=== PATIENT | female | born 1975 | race Hispanic/Latino ===

== ENCOUNTER 2016-12-18 08:01 | Emergency (ER) | payer SELFPAY ==
[2016-12-18 09:18] LABS: Basophils % (Auto) 0.6 % (0.0-1.8); Eosinophils % (Auto) 1.3 % (0.0-4.3); Hematocrit 33.2 % (30.3-42.9); Hemoglobin 10.9 gm/dl (10.1-14.3); Mean Corpuscular HGB Conc 33 % (30-34); Mean Corpuscular Hemoglobin 29 pg (28-32); Mean Corpuscular Volume 90 fl (79-97); Platelet Count 425 K/mm3 (140-440); Red Cell Distribution Width 14.1 % (13.2-15.2); White Blood Count 12.8 K/mm3 (4.5-11.0)
[2016-12-18 09:43] LABS: Alanine Aminotransferase 208 units/L (7-56); Albumin 3.8 g/dL (3.9-5); Albumin/Globulin Ratio 1.2 %; Alkaline Phosphatase 109 units/L (35-129); Anion Gap 17 mmol/L; BUN/Creatinine Ratio 8.33; Bilirubin,Total 0.3 mg/dL (0.1-1.2); Blood Urea Nitrogen 5 mg/dL (7-17); Calcium 8.7 mg/dL (8.4-10.2); Carbon Dioxide 25 mmol/L (22-30); Chloride 101.4 mmol/L (98-107); Glucose 89 mg/dL (65-100); INR 0.94 (0.87-1.13); Lipase 19 units/L (13-60); Potassium 3.8 mmol/L (3.6-5.0); Sodium 140 mmol/L (137-145)
[2016-12-18 09:55] LABS: Bacteria,Urine 1+ /HPF (Negative); Bilirubin,Urine NEG (Negative); Blood,Urine MOD (Negative); Ketones,Urine NEG (Negative); Leukocyte Esterase,Urine NEG (Negative); Mucus,Urine 3+ /HPF; Nitrite,Urine POS (Negative); Protein,Urine <15 mg/dL mg/dL (Negative)
--- NOTE | 2016-12-18 11:31 | XRay Report ---
AP CHEST :12/18/16 08:01:00 CLINICAL: Sepsis. COMPARISON:None. FINDINGS: Normal heart and pulmonary vasculature. The lungs are normally expanded and clear except for mild left lower lobe subsegmental atelectasis. The bones and soft tissues are normal. IMPRESSION: Mild left lower lobe subsegmental atelectasis. No pneumonia.
[2016-12-18] MEDS ORDERED: NACL 0.9% 1000 ML 1,000 ML IV ONE (19:51)
[2016-12-18] MEDS ORDERED: SUBLIMAZE IV ONE (19:51)
[2016-12-18] MEDS ORDERED: NACL ONE (19:51)
--- NOTE | 2016-12-18 20:15 | Emergency Department Report ---
HPI - General Chief Complaint: Abdominal Pain Time Seen by Provider: 12/18/16 18:48 - HPI HPI: This is a 41-year-old female presents to the emergency department with a one-week history of lower abdominal pain. The patient was recently at [facility] and admitted for 2 days for a urinary tract infection and sepsis , allegedly. The patient says that she left [facility] last night without being discharged, AMA, after she got into an argument with one of the nurses. She then went home but the pain continued or worsened so she came here for further evaluation. She gets to a history of arthritis. She has not taken anything for symptoms prior to presentation. She does not have a primary care doctor. She is not taken anything for symptoms since being home. She denies any nausea, vomiting, vaginal bleeding or discharge but does admit to some occasional dysuria. ED Past Medical Hx - Past Medical History Hx Diabetes: Yes (states "I only have it when I gain weight" takes NO meds) Hx Renal Disease: Yes Hx Arthritis: Yes (states she is in remission) Additional medical history: Low BP, - Surgical History Past Surgical History?: Yes Additional Surgical History: C- Section x3 - Social History Smoking Status: Current Every Day Smoker - Medications Home Medications: Home Medications Medication Instructions Recorded Confirmed Last Taken Type HYDROcodone/APAP 5-325 [Holmes 1 each PO Q6HR PRN #14 tablet 12/18/16 Unknown Rx 5/325] ED Review of Systems ROS: Stated complaint: UTI/PAIN Other details as noted in HPI Comment: All other systems reviewed and negative Constitutional: denies: chills, fever Eyes: denies: eye pain, eye discharge, vision change ENT: denies: ear pain, throat pain Respiratory: denies: cough, shortness of breath, wheezing Cardiovascular: denies: chest pain, palpitations Gastrointestinal: abdominal pain. denies: nausea Genitourinary: dysuria. denies: discharge Musculoskeletal: back pain. denies: arthralgia Skin: denies: rash, lesions Neurological: denies: headache, weakness, paresthesias Physical Exam - Physical Exam Vital Signs: Vital Signs 12/18/16 12/18/16 08:09 18:56 Temperature 98.1 F Pulse Rate 118 H 101 H Respiratory 20 20 Rate Blood Pressure 116/80 Blood Pressure 130/85 [Right] O2 Sat by Pulse 95 98 Oximetry Physical Exam: GENERAL: The patient is well-developed well-nourished. HEENT: Normocephalic. Atraumatic. Extraocular motions are intact. Patient has moist mucous membranes. Pupils equal reactive to light bilaterally. NECK: Supple. Trachea is midline. CHEST/LUNGS: Clear to auscultation. There is no respiratory distress noted. HEART/CARDIOVASCULAR: Regular. There is no tachycardia. There is no gallop rub or murmur. ABDOMEN: Abdomen is soft. There is mild tenderness to palpation to the lower quadrants of the abdomen. No guarding or rebound tenderness. Patient has normal bowel sounds. There is no abdominal distention. SKIN: Warm and dry. NEURO: The patient is awake, alert, and oriented. The patient is cooperative. The patient has no focal neurologic deficits. The patient has normal speech. MUSCULOSKELETAL: There is no tenderness or deformity. There is no limitation range of motion. There is no evidence of acute injury. ED Course Vital Signs 12/18/16 12/18/16 08:09 18:56 Temperature 98.1 F Pulse Rate 118 H 101 H Respiratory 20 20 Rate Blood Pressure 116/80 Blood Pressure 130/85 [Right] O2 Sat by Pulse 95 98 Oximetry ED Medical Decision Making - Lab Data Result diagrams: 12/18/16 08:31 12/18/16 08:31 - Radiology Data Radiology results: report reviewed, image reviewed interpreted by me: Chest x-ray did not show any acute process. Heart is normal shape and size. No effusions. No pneumothorax. No signs of pneumonia seen. Right upper quadrant ultrasound shows a prominent gallbladder wall thickening which may relate to its contracted state. No shadowing gallstones or biliary dilatation. CT of the abdomen and pelvis with IV contrast shows prominent wall thickening/ edema of the gallbladder. No calcified gallstones or gross biliary dilatation. Trace left and right small pleural effusion. Trace fluid in the pelvis which may be reactive or physiologic. Enlarged upper abdominal lymph nodes borderline enlarged retroperitoneal lymph nodes which may be reactive. Neoplastic lymphadenopathy is less likely but not be entirely excluded. Follow- up CT within next few months suggested. No other acute findings within the abdomen and pelvis. - Medical Decision Making This is a 41-year-old female presents to the emergency department with continued discomfort in the lower abdomen that previously had her at [facility] for a urinary tract infection and allegedly a septic state. Patient has stable vital signs at her ED course including being afebrile. She had some mild tachycardia when she first got here but it has resolved with some IV fluid resuscitation and pain control. Patient's labs show a mild leukocytosis of 12, 000. Patient has a elevation of her AST of 78 and ALT of 200. There is an elevated BNP level of 5000 but she does not have coarse breath sounds on auscultation, there are no pleural effusions seen on chest x-ray. Patient is not complaining of any chest pain or shortness of breath. Due to the patient's level of abdominal discomfort, a CT of the abdomen and pelvis with IV contrast was done. There is some adenopathy seen in the abdomen and there is some thickening of the gallbladder wall but no biliary dilatation or stones. A right upper quadrant ultrasound was also done that once again show some prominence of the gallbladder, most likely due to its contracted state, but no biliary dilatation or stones. Patient was given a dose of pain medication and upon reevaluation is feeling better. She'll be discharged home to follow-up with primary care and gastroenterology. She'll return to the ER with any worsening of her symptoms or any acute distress. - Differential Diagnosis UTI, pyelonephritis, , fibroids, colitis Critical Care Time: No Critical care attestation.: If time is entered above; I have spent that time in minutes in the direct care of this critically ill patient, excluding procedure time. ED Disposition Clinical Impression: Abdominal lymphadenopathy, Transaminitis Abdominal pain Qualifiers: Abdominal location: lower abdomen, unspecified Qualified Code(s): R10.30 - Lower abdominal pain, unspecified Disposition: DISCHARGED TO HOME OR SELFCARE Is pt being admited?: No Condition: Stable Instructions: Abdominal Pain (ED) Additional Instructions: Please follow-up with the primary care clinic I have given you a referral for. I have also given a referral for a local melt supervisor to follow up regarding your elevated liver enzymes and your abdominal pains. Return to the emergency department with any worsening of your symptoms or any acute distress. You've been prescribed a medication that is sedating. Therefore this medication cannot be mixed with alcohol, or taken prior to driving, working, or being responsible for children. Prescriptions: HYDROcodone/APAP 5-325 [Holmes 5/325] 1 each PO Q6HR PRN #14 tablet PRN Reason: Pain Referrals: PRIMARY CARE, [Primary Care Provider] - 3-5 Days ANASTASIA MCCALL MD [Staff Physician] - 3-5 Days [facility] [Outside] - 3-5 Days Time of Disposition: 23:52
--- NOTE | 2016-12-18 22:40 | Cat Scan Report ---
FINAL REPORT EXAM: CT ABDOMEN PELVIS W CON HISTORY: Abd pain COMPARISON: None available. TECHNIQUE: Contiguous axial images were obtained. Additional sagittal and coronal reformatted images were obtained. Administration of IV contrast given per institution protocol. Images submitted for interpretation. 100 cc Omnipaque [id number]. FINDINGS: Trace left and small right-sided pleural effusions. Nonspecific linear consolidation right lower lobe which may reflect compressive atelectasis. Mild septal thickening at the lung bases concerning for mild edema. Tiny hiatal hernia. 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 No other focal hepatic lesion. Spleen and pancreas are grossly unremarkable. No adrenal mass. No cholelithiasis. Prominent gallbladder wall thickening/edema. No biliary dilatation. The common bile duct at the pancreatic head measures 4 millimeters. Mild nonspecific periportal edema. No solid renal lesion. No hydronephrosis. Aorta and IVC normal in caliber. There borderline to mildly enlarged upper abdominal lymph nodes. There is a portal caval lymph node measuring 1.6 x 1.5 centimeters in axial dimension. At the anterior margin of the pancreatic head and portal vein there is a 1.7 x 0.9 centimeter lymph node. There are few pelvic phleboliths. Trace free fluid in the pelvis. Urinary bladder, uterus, ovaries are grossly unremarkable. The appendix is normal in caliber. Large and small bowel loops normal in caliber. Moderate stool in the right colon. Lumbar vertebral body heights are preserved. Bony pelvis is grossly intact. IMPRESSION: Prominent wall thickening/edema of the gallbladder. No calcified gallstones are gross biliary dilatation by CT. The patient has right upper quadrant pain, nuclear medicine HIDA scan may be of benefit for further evaluation. Trace left and small right-sided pleural effusion with septal thickening lung bases concerning for mild edema. Trace fluid in the pelvis which may be reactive or physiologic. Enlarged upper abdominal lymph nodes borderline enlarged retroperitoneal lymph nodes which may be reactive. Neoplastic lymphadenopathy less likely but cannot be entirely excluded. Followup CT within the next 3 months suggested to ensure stability of the lymph nodes. No other acute findings within the abdomen and pelvis.
--- NOTE | 2016-12-18 23:36 | Ultrasound Report ---
FINAL REPORT EXAM: US ABDOMEN LIMITED HISTORY: abd pain, RUQ COMPARISON: CT of the abdomen and pelvis from the same date. TECHNIQUE: Several real-time grayscale and color Doppler images were obtained. FINDINGS: Visualized aorta is normal in caliber. Visualized liver and pancreas are homogeneous in echogenicity. Right kidney measures 14.4 centimeters in length. No gross focal renal lesion or hydronephrosis. Prominent gallbladder wall thickening. No shadowing gallstones. No biliary dilatation. The common bile duct measures 4 millimeters. IMPRESSION: Prominent gallbladder wall thickening which may relate to is partially contracted state. No shadowing gallstones or biliary dilatation.
[2016-12-19 00:31] VITALS: BP 115/73
== END 2016-12-19 00:39 | disposition home or self-care (01) ==
LOC: ED 08:01
DX: R59.0 Localized enlarged lymph nodes (principal); R10.30 Lower abdominal pain, unspecified; R74.0 Nonspecific elevation of levels of transaminase and lactic acid dehydrogenase [LDH]; E11.9 Type 2 diabetes mellitus without complications; M19.90 Unspecified osteoarthritis, unspecified site; F17.200 Nicotine dependence, unspecified, uncomplicated
CPT/HCPCS: 36415; 71010; 74177; 76705; 80053; 81001; 81025; 82140; 82805; 83690; 83880; 85025; 85610; 87040; 96361; 96374; 99284; J3010; J7030; Q9967